=== PATIENT | female | born 1985 | race African-American/Black ===

== ENCOUNTER 2022-04-20 10:06 | Emergency (ER) | payer OTHER, SELFPAY ==
--- NOTE | ~2022-04-20 | XR_ITS ---
EXAMINATION: XR chest 2V DATE: 04/20/2022 13:18 INDICATION: 2 days of cough and shortness of breath TECHNIQUE: PA and lateral views of the chest were obtained. COMPARISON: None FINDINGS: There is infrahilar bronchial wall thickening in the posterior lower lung zones without focal airspac e opacities. No pleural effusion or pneumothorax. The cardiomediastinal silhouette is normal. Visuali zed bones and soft tissues are unremarkable. IMPRESSION: 1. Hilar bronchial wall thickening without focal airspace opacities which could be seen with bronchit is, atypical or early pneumonia, reactive airway disease/asthma or minimal pulmonary edema. Reviewed, dictated and finalized at location A. OR CASE MANAGER IMPRESSION: 1. Hilar bronchial wall thickening without focal airspace opacities which could be seen with bronchitis, atypical or early pneumonia, reactive airway disease/ asthma or minimal pulmonary edema.
[2022-04-20 10:46] VITALS: BP 120/76; PULSE 79; RESP 16; TEMP 36.6; O2SAT 100
--- NOTE | 2022-04-20 11:38 | PC.NURSE ---
gave pt. gown and instructions to change when taken to room; has put gown over bra and other garments covering the torso
[2022-04-20 11:40] VITALS: BP 120/62; PULSE 81; RESP 18; TEMP 36.6; O2SAT 100
--- NOTE | 2022-04-20 11:44 | PC.NURSE ---
Report and care to MYLA Brown
--- NOTE | 2022-04-20 12:46 | ED.URI ---
HPI - URI/Sore Throat General Chief Complaint: Upper Respiratory Infection Stated Complaint: cough and SOB x 3 days Time Seen by Provider: 04/20/22 12:03 History of Present Illness HPI Narrative: Patient is a 36-year-old female with a history of hypothyroidism, hyperlipidemia presenting with URI symptoms. Patient states that for the last 2 days she has had a persistent cough associated with mild shortness of breath. States that she has had some pain with coughing and deep breathing on the right. Denies left-sided chest pain. No lightheadedness or palpitations. Patient states that she has been coughing up phlegm. No vomiting or diarrhea. No leg swelling. Related Data Home Medications Medication Instructions Recorded Confirmed levothyroxine 75 mcg capsule 75 mcg PO DAILY 04/20/22 simvastatin HS 04/20/22 Allergies Allergy/AdvReac Type Severity Reaction Status Date / Time tramadol Allergy Itching Verified 04/20/22 10:08 Review of Systems Review of Systems: All systems reviewed & are unremarkable except as noted in HPI and below Exam Narrative: GENERAL: Well-appearing, well-nourished, and in no acute distress. HEAD: Normocephalic, atraumatic. EYES: PERRLA and EOMI. ENT: +nasal congestion. Mucous membranes moist. NECK: Supple. CHEST: Clear to auscultation. No respiratory distress. HEART: Regular rate and rhythm. ABDOMEN: Soft, nontender, nondistended EXTREMITIES: Normal range of motion. No edema. SKIN: Warm, dry, no rash. NEURO: No focal deficits. Alert and oriented x3. PSYCH: Normal mood and affect. Course Vital Signs Vital signs: Vital Signs Temperature 97.9 F 04/20/22 10:46 Pulse Rate 79 04/20/22 10:46 Respiratory Rate 16 04/20/22 10:46 Blood Pressure 120/76 04/20/22 10:46 Pulse Oximetry 100 04/20/22 10:46 Oxygen Delivery Room Air 04/20/22 10:46 Temperature 97.8 F 04/20/22 11:40 Pulse Rate 81 04/20/22 11:40 Respiratory Rate 18 04/20/22 11:40 Blood Pressure 120/62 04/20/22 11:40 Pulse Oximetry 100 04/20/22 11:40 Oxygen Delivery Room Air 04/20/22 11:40 MDM - URI/Sore Throat MDM Narrative Medical decision making narrative: Patient is a 36-year-old female presenting with URI symptoms. Vitals are within normal limits. Exam remarkable for the above. Blood work is unremarkable. Normal renal function and electrolytes. Chest x-ray with evidence of bronchitis versus reactive airway disease. We will send in an inhaler for symptomatic control. Patient is negative for COVID, influenza, RSV. Suspect that she has some other viral respiratory infection. Discussed appropriate supportive care. Advised PCP follow-up. Appropriate return precautions given. Patient voiced understanding and is agreeable with plan. Discharged in stable condition. Differential Diagnosis Differential diagnosis: Likely upper respiratory infection, sinusitis, viral infection, bronchitis and influenza Lab Data 04/20/22 13:02 04/20/22 13:02 Labs: Lab Results 04/20/22 04/20/22 04/20/22 Range/Units 13:02 13:02 13:02 WBC 8.8 (4.5-10.0) K/mm3 RBC 3.51 L (4.2-5.4) M/mm3 Hgb 10.3 L (12.0-15.0) g/dL Hct 31.4 L (37.0-47.0) % MCV 89.5 (80-100) fl MCH 29.3 (26-34) pg MCHC 32.8 (32-36) g/dl RDW 13.2 (11.5-14.5) % Plt Count 427 H (150-375) k/mm3 MPV 9.0 (7.4-10.4) fl Immature Gran % (Auto) 0.3 (0-0.5) % Neut % (Auto) 56.1 (45.5-73.1) % Lymph % (Auto) 33.9 (18.3-44.2) % Lincoln % (Auto) 6.4 (2.6-8.5) % Eos % (Auto) 2.8 (0-4.4) % Baso % (Auto) 0.5 (0.2-1.2) % Lymph # (Auto) 2.98 (0.9-3.2) K/mm3 Lincoln # (Auto) 0.6 (0.1-0.6) K/mm3 Eos # (Auto) 0.3 (0-0.3) K/mm3 Baso # (Auto) 0.0 (0.0-0.1) K/mm3 Abs Immat Gran (auto) 0.03 (0.00-0.031) K/mm3 Absolute Neuts (auto) 4.9 (1.3-6.7) K/mm3 Absolute Nucleated RBC 0.0 (0.0-0.012) K/mm3 Nucleated RBC % 0.0 (0.0-
[2022-04-20] MEDS: KETOROLAC 30 MG/ML VIAL (*BKC) IV PUSH (12:59)
[2022-04-20] MEDS: SODIUM CHLORIDE 0.9% IV 1,000 ML 999 ML IV CONT (12:59)
[2022-04-20] MEDS: BENZONATATE 100 MG CAPSULE 200 MG PO (12:59)
[2022-04-20 13:15] LABS: Basophils Percent Auto 0.5 % (0.2-1.2); Eosinophils Absolute Auto 0.3 K/mm3 (0-0.3); Eosinophils Percent Auto 2.8 % (0-4.4); Hematocrit 31.4 % (37.0-47.0); Hemoglobin 10.3 g/dL (12.0-15.0); Immature Granulocyte Absolute 0.03 K/mm3 (0.00-0.031); Immature Granulocyte Percent A 0.3 % (0-0.5); Lymphocytes Absolute Auto 2.98 K/mm3 (0.9-3.2); Lymphocytes Percent Auto 33.9 % (18.3-44.2); Mean Corpuscular HGB Conc 32.8 g/dl (32-36); Mean Corpuscular Hemoglobin 29.3 pg (26-34); Mean Corpuscular Volume 89.5 fl (80-100); Monocytes Absolute Auto 0.6 K/mm3 (0.1-0.6); Monocytes Percent Auto 6.4 % (2.6-8.5); Neutrophils Absolute Auto 4.9 K/mm3 (1.3-6.7); Neutrophils Percent Auto 56.1 % (45.5-73.1); Platelet Count Result 427 k/mm3 (150-375); Red Blood Count 3.51 M/mm3 (4.2-5.4); Red Cell Distribution Width 13.2 % (11.5-14.5); White Blood Count 8.8 K/mm3 (4.5-10.0)
[2022-04-20 13:28] LABS: Alanine Aminotransferase 30 U/L (6-35); Albumin Level 4.2 g/dL (3.5-5.1); Alkaline Phosphatase 80 U/L (38-126); Anion Gap 7 mmol/L (8-16); Aspartate Amino Transferase 31 U/L (14-36); Bilirubin,Total 0.5 mg/dL (0.2-1.3); Blood Urea Nitrogen 7 mg/dL (7-17); Calcium 8.4 mg/dL (8.4-10.2); Carbon Dioxide 26 mmol/L (22-30); Chloride 105 mmol/L (98-107); Estimated CRCL calculation 155 ml/min; Estimated Glomerular Filt Rate > 60; Glucose 85 mg/dL (65-110); Potassium 3.8 mmol/L (3.4-5.0); Sodium 138 mmol/L (137-145)
[2022-04-20 13:52] LABS: Influenza A QL RT-PCR Negative (Negative); Influenza B QL RT-PCR Negative (Negative); RSV RNA, RT-PCR Negative (Negative); SARS-CoV-2 RNA PCR Negative
== END 2022-04-20 14:41 | disposition home or self-care (01) ==
PROVIDERS: Emergency Provider Emergency Medicine
DX: J06.9 Acute upper respiratory infection, unspecified (principal); Z20.822 Contact with and (suspected) exposure to COVID-19; E03.9 Hypothyroidism, unspecified; E78.5 Hyperlipidemia, unspecified
CPT/HCPCS: 36415; 71046; 80053; 85025; 87637; 96361; 96374; 99284; A9270; J1885; J7030